=== PATIENT | male | born 1960 | race Caucasian/White ===

== ENCOUNTER 2018-09-14 14:01 | Emergency (ER) | payer BC ==
[2018-09-14] MEDS ORDERED: DEXAMETHASONE SOD PHOS INJ 10 MG/1 ML VIAL IM ONE (15:04)
--- NOTE | 2018-09-14 15:05 | ER Document Report ---
HPI - HPI Time Seen by Provider: 09/14/18 14:47 Pain Level: 3 Context: Patient is a 57-year-old male who presents the emergency department with a chief complaint of left hip pain. He states that he was doing his normal activity today and he sat down around 11:00 and when he went to go stand up he felt a pop in his left hip. He had to grab onto his hot tub to prevent him from falling. He denies any injury. Patient has a past medical history of diabetes, hyperten simone, and hyperlipidemia. He is currently on his normal medications. - CONSTITUTIONAL Constitutional: DENIES: Fever, Chills - EENT EENT: DENIES: Ear Pain, Congestion - NEURO Neurology: DENIES: Headache, Weakness - CARDIOVASCULAR Cardiovascular: DENIES: Chest pain - RESPIRATORY Respiratory: DENIES: Trouble Breathing, Coughing - GASTROINTESTINAL Gastrointestinal: DENIES: Abdominal Pain - MUSCULOSKELETAL Musculoskeletal: REPORTS: Extremity pain - Left hip. DENIES: Back Pain, Neck Pain, Swelling - DERM Skin Color: Normal Skin Problems: None Past Medical History - General Information source: Patient - Social History Smoking Status: Never Smoker Family History: Reviewed & Not Pertinent Vertical Provider Document - CONSTITUTIONAL Agree With Documented VS: Yes Exam Limitations: No Limitations General Appearance: No Apparent Distress - INFECTION CONTROL TRAVEL OUTSIDE OF THE [place] IN LAST 30 DAYS: No - HEENT HEENT: Atraumatic, Normocephalic, PERRLA - NECK Neck: Normal Inspection - RESPIRATORY Respiratory: Breath Sounds Normal, No Respiratory Distress - CARDIOVASCULAR Cardiovascular: Regular Rate, Regular Rhythm Pulses: Normal: Radial - MUSCULOSKELETAL/EXTREMETIES Musculoskeletal/Extremeties: Tender - Left hip, No Edema. negative: FROM - Decreased range of motion to left hip, Eccymosis - NEURO Level of Consciousness: Awake, Alert, Appropriate Motor/Sensory: No Motor Deficit, No Sensory Deficit - DERM Integumentary: Warm, Dry, No Rash Course - Re-evaluation Re-evalutation: 09/14/18 16:24 Patient's x-ray is negative for any acute fractures. He does have narrowing of his hip joint. This may be the cause of the pain he felt earlier. I do not suspect he has a fracture, as the patient is able to walk. I have a very low suspicion for a septic joint. He states he feels better after receiving the Decadron. He will follow-up with his primary care provider. I have advised him to seek physical therapy. He is in agreement with this plan. Verbal discharge instructions were given to the patient. They verbalized understanding. They are stable for discharge. - Vital Signs Vital signs: Temp Pulse Resp BP Pulse Ox 98.3 F 65 16 127/66 H 96 09/14/18 14:21 09/14/18 14:21 09/14/18 14:21 09/14/18 14:21 09/14/18 14:21 Discharge - Discharge Clinical Impression: Left hip pain Condition: Stable Disposition: HOME, SELF-CARE Additional Instructions: You were seen today in the emergency department for left hip pain. There is narrowing of your hip joint, and this may be the cause of your symptoms. You are given steroids here in the emergency department to help with your pain. You can take Tylenol 1000 mg and ibuprofen 600 mg every 6 hours as needed for your pain. Please use crutches for the next few days as needed. Make sure you get plenty of rest. Please follow-up with your primary care provider. You may benefit from physical therapy. If you are unable to walk, or have any symptoms that are worrisome to you, please return to the emergency department. Referrals: YASMINE SHAIKH MD [Primary Care Provider] - Follow up as needed
--- NOTE | 2018-09-14 15:30 | RADIOLOGY REPORT (SQ) ---
EXAM DESCRIPTION: HIP LEFT AP/LATERAL COMPLETED DATE/TIME: 09/14/2018 3:20 pm REASON FOR STUDY: left hip pain COMPARISON: None. NUMBER OF VIEWS: Two views. TECHNIQUE: AP pelvis and additional frog-leg view of the left hip. LIMITATIONS: None. FINDINGS: MINERALIZATION: Normal. LEFT HIP: No fracture or dislocation. No worrisome bone lesions. Mild superior joint space narrowin g. RIGHT HIP: No fracture or dislocation. No worrisome bone lesions. Mild superior joint space narrowi ng. PUBIS AND ISCHIUM: No fracture. PELVIS: No fracture. SACRUM: No fracture or dislocation. No worrisome bone lesions. LOWER LUMBAR SPINE: No fracture or dislocation. No worrisome bone lesions. No significant disc disea se. SOFT TISSUES: No findings. OTHER: No other significant finding. IMPRESSION: No fracture or dislocation of the left hip. Mild superior joint space narrowing pre ple ase note that plain radiographs are insensitive for hip and pelvic fracture. Consider MRI to more se nsitively evaluate. TECHNICAL DOCUMENTATION: JOB ID: [id number] [employer]- All Rights Reserved Reading location - IP/workstation name: [email or web address]
[2018-09-14 16:45] VITALS: BP 126/72
== END 2018-09-14 16:38 | disposition home or self-care (01) ==
LOC: ER 14:01
DX: M25.552 Pain in left hip (principal); E11.9 Type 2 diabetes mellitus without complications; I10 Essential (primary) hypertension; Z79.899 Other long term (current) drug therapy
CPT/HCPCS: 99283; 96372; 73502; J1100